=== PATIENT | male | born 1965 | race Caucasian/White ===

== ENCOUNTER 2017-05-30 09:34 | Emergency (ER) | payer MEDICAID, OTHER ==
[2017-05-30] MEDS ORDERED: Tdap Vaccine 0.5 ml Vial (10-64 yrs) IM ONE ×2 (10:24→11:14)
[2017-05-30] MEDS ORDERED: Bacitracin OINT 15GM TOP STA (10:25)
[2017-05-30] MEDS ORDERED: Sodium Chloride 0.9% 1,000 ML IV SCH (10:45)
--- NOTE | 2017-05-30 11:03 | ED PDOC ---
HPI: Psych/Substance Abuse Time Seen by Provider: 05/30/17 10:14 Chief Complaint (Nursing): Headache Chief Complaint (Provider): Headache History Per: Patient History/Exam Limitations: intoxication Current Symptoms Are (Timing): Still Present Modifying Factor(s): Alcohol Additional History Per: Family (daughter) Additional Complaint(s): 52 year old male was brought to the ED by EMS accompanied by daughter for evaluation of head and right elbow injury. Daughter states her family was celebrating her birthday last night into the morning and as her aunt was leaving , her father fell down 8 steps around 9am. Daughter states she is unsure of how much her father drank, but she notes she did witness him taking shots. Patient' s only complaint at present is headache. Denies loss of consciousness, nausea or vomiting. Of note: unknown if patient had recent tetanus vaccination PMD: No Family Provider Past Medical History Reviewed: Historical Data, Nursing Documentation, Vital Signs Vital Signs: Last Vital Signs Temp 97 F L 05/30/17 09:37 Pulse 67 05/30/17 09:37 Resp BP 139/82 05/30/17 09:37 Pulse Ox 97 05/30/17 09:37 - Medical History PMH: No Chronic Diseases - Surgical History Surgical History: No Surg Hx - Family History Family History: States: Unknown Family Hx - Living Arrangements Living Arrangements: With Family - Social History Alcohol: Social - Immunization History Hx Tetanus Toxoid Vaccination: No - Home Medications Home Medications: Ambulatory Orders Medication Instructions Recorded Hydrocortisone [Anusol-HC] 25 mg RC BID #14 sup 08/04/13 Ibuprofen [Motrin] 600 mg PO TIDPC #14 tab 08/04/13 Diphenhydramine Hydrochlorid 25 mg PO 5XD PRN #30 cap 10/27/14 [Benadryl] Famotidine [Pepcid] 20 mg PO BID #20 tab 10/27/14 Prednisone 10 mg PO DAILY #32 tab 10/27/14 Triamcinolone 0.25% [Triamcinolone 1 appl TP BID #60 g 10/27/14 Acetonide] Albuterol Sulfate [Ventolin Hfa] 0.09 mg IH Q4 PRN #1 inh 11/27/14 Dm Hydrobrom/Promethazine Hc 10 ml PO Q8 PRN #8 oz 10/20/15 [Promethazine Dm 15 mg/5 ml-6.25 mg/5 ml 118 M] Spacer, Inhalation [Aerochamber] 1 dev IH DAILY #1 dev 11/27/14 Acetaminophen [Acetaminophen 8 650 mg PO Q8 PRN #24 tablet.er 05/30/17 Hour] Bacitracin Ointment [Bacitracin] 5 gm TOP BID #1 tube 05/30/17 - Allergies Allergies/Adverse Reactions: Allergies Allergy/AdvReac Type Severity Reaction Status Date / Time No Known Allergies Allergy Verified 05/30/17 09:35 Review of Systems ROS Statement: Except As Marked, All Systems Reviewed And Found Negative Gastrointestinal: Negative for: Nausea, Vomiting Neurological: Positive for: Headache. Negative for: Other (loss of consciousness) Physical Exam - Reviewed Nursing Documentation Reviewed: Yes Vital Signs Reviewed: Yes - Physical Exam Comments: GENERAL APPEARANCE: Patient is awake, somnolent but responsive to painful and verbal stimuli (+) intoxicated SKIN: Warm, dry; (-) cyanosis; (-) rash. HEAD: (+) posterior parietal hematoma measuring 3cm by 3cm with central 2cm by 2cm stellate, irregular laceration with friable skin (+) active bleeding (+) tenderness, (-) palpable bone deformity (-) facial tenderness or swelling EYES: (-) conjunctival pallor, (-) scleral icterus, (+) opens eyes ENMT: (-) sinus tenderness; mucous membranes are moist. NECK: Supple, FROM (-) tenderness, (-) stiffness, (-) meningismus, (-) lymphadenopathy. CHEST AND RESPIRATORY: (-) rales, (-) rhonchi, (-) wheezes; breath sounds equal bilaterally. HEART AND CARDIOVASCULAR: (-) irregularity; (-) murmur, (-) gallop. ABDOMEN AND GI: Soft; (-) tenderness (-)distention. RIGHT-ELBOW: (+) Full ROM, (-) ecchymosis, tenderness, or effusion (+) .5cm linear, superficial abrasion to lateral aspect of Right elbow, (-) active bleeding. NEURO AND PSYCH: Mental status as above. cardiology specialist: Pupils are reactive; EOMI; (-) facial asymmetry; tongue and uvula midline. - Laboratory Results Result Diagrams: 05/30/17 11:00 05/30/17 11:00 - ECG O2 Sat by Pulse Oximetry: 97 (RA) Pulse Ox Interpretation: Normal Medical Decision Making Medical Decision Making: Time: 1024 Initial Impression: head injury, scalp laceration, elbow abrasion s/p fall, alcohol intoxication Initial Plan: --Head w/o contrast [CT] --Alcohol serum --CMP --CBC w/ differential --Adacel 0.5ml IM --Bacitracin and dressing to elbow wound after normal saline irrigation. --Normal Saline 1000 mls/hr --Reevaluation Finger stick: 109 PROCEDURE: LACERATION REPAIR Performed by Patricia Guillaume PA-C Location: scalp Length: laceration 2cm by 2cm Description: stellate, irregular Anesthesia: None Preparation: The wound was irrigated with 100cc saline. Exploration: The wound was explored and no foreign bodies were found. Procedure: The wound was closed with 13 chetan. There was appropriate approximation. Post-Procedure: Good closure and hemostasis. The patient tolerated the procedure well and there were no complications. cardiology specialist remains intact. Post procedure dressing applied. 1145 CT reviewed, radiology report follows Creator : Rudy Baum MD Report Date : 05/30/2017 11:42:44 PROCEDURE: CT HEAD WITHOUT CONTRAST. HISTORY: etoh, s/p fall down 8 stairs COMPARISON: None available. TECHNIQUE: Axial computed tomography images were obtained through the head/brain without intravenous contrast. Radiation dose: Total exam DLP = 835.7 mGy-cm. This CT exam was performed using one or more of the following dose reduction techniques: Automated exposure control, adjustment of the mA and/or kV according to patient size, and/or use of iterative reconstruction technique. FINDINGS: HEMORRHAGE: No intracranial hemorrhage. BRAIN: No mass effect or edema. Mild atrophy. No chronic microvascular ischemic changes. VENTRICLES: Rajiv cisterna magna versus posterior fossa cyst. No hydrocephalus. CALVARIUM: Unremarkable. PARANASAL SINUSES: Maxillary sinus and ethmoid air cell mucosal thickening. MASTOID AIR CELLS: Unremarkable as visualized. No inflammatory changes. OTHER FINDINGS: High right parietal scalp laceration/hematoma and skin chetan. IMPRESSION: High right parietal scalp laceration/hematoma and skin chetan. No calvarial fracture. No acute intracranial hemorrhage. Patient pending clinical sobriety. 1230 Patient sleeping comfortably in ED stretcher. VSS. 1330 Patient requesting food tray at this time. Patient ambulated to ED bathroom but needed assistance from daughter, gait remains unsteady. Will continue to monitor. 1530 Patient ambulatory in ED with a steady, unassisted gait. Patient is awake, alert , oriented x3 and reports improvement of headache. Patient states he will take a taxi home with his daughter. On re-evaluation, patient appears well, not toxic appearing, is awake, alert, neck is supple with no signs of meningismus, in no acute distress. Lungs clear to auscultation, cardiac RRR, abdomen soft, non-tender, repeat neuro exam shows no focal findings. VSS, stable for discharge. Diagnostic results d/w the patient in great detail. Diagnosis of head injury, scalp laceration, elbow abrasion, headache s/p fall d/w the patient. Based on history, exam and diagnostic results, plan will be for outpatient follow up. Patient instructed to follow-up with pmd / referral provided / the clinic in 1- 2 days without fail. Advised to take medication as prescribed. Return to the emergency room at any time for any new or worsening symptoms. Patient states he fully agrees with and understands discharge instructions. States that he agrees with the plan and disposition. Verbalized and repeated discharge instructions and plan. I have given the patient opportunity to ask any additional questions. Patient was advised to return to ED in 5 days for suture removal. Educated on wound care. Scribe Attestation: Documented by Narciso Curry, acting as a scribe for Patricia Guillaume PA-C Provider Scribe Attestation: All medical record entries made by the Scribe were at my direction and personally dictated by me. I have reviewed the chart and agree that the record accurately reflects my personal performance of the history, physical exam, medical decision making, and the department course for this patient. I have also personally directed, reviewed, and agree with the discharge instructions and disposition. Procedures - Time-Out Type of Procedure: Laceration Site of Procedure: scalp Correct Patient (with visual ID + MR# on ID Band): Yes Correct Procedure: Yes Correct Site Marked: Yes Medication Reconciliation / Bloodwork / Allergies Checked: Yes PA/Huber: Patricia Guillaume Disposition - Clinical Impression Clinical Impression: Headache, Scalp laceration, Fall down stairs, Elbow abrasion, Alcohol intoxication - Patient ED Disposition Is Patient to be Admitted: No Counseled Patient/Family Regarding: Studies Performed, Diagnosis, Need For Followup, Rx Given - Disposition Referrals: [facility] [Outside] Disposition: Routine/Home Disposition Time: 15:35 Condition: IMPROVED Additional Instructions: CHETAN NEED TO BE REMOVED IN 5 DAYS. CLEAN WOUNDS TWICE A DAY WITH WARM WATER AND SOAP. APPLY ANTIBIOTIC OINTMENT NEEDED. Prescriptions: Acetaminophen [Acetaminophen 8 Hour] 650 mg PO Q8 PRN #24 tablet.er PRN Reason: Pain, Moderate (4-7) Bacitracin Ointment [Bacitracin] 5 gm TOP BID #1 tube Instructions: Headache, Adult, Skin Abrasions, Wound Care, Laceration Repair With Chetan (DC), Skin Abrasions (DC) Forms: [employer] (Irish) Print Language: POLISH - POA Present On Arrival: Falls Or Trauma Results - Lab Results Lab Results: 05/30/17 05/30/17 05/30/17 13:19 11:00 11:00 WBC 7.0 RBC 4.91 Hgb 15.9 Hct 45.8 MCV 93.2 MCH 32.3 H MCHC 34.6 RDW 14.0 Plt Count 283 MPV 8.3 Neut % (Auto) 68.5 Lymph % (Auto) 25.7 [place] % (Auto) 3.4 Eos % (Auto) 1.8 Baso % (Auto) 0.6 Neut # (Auto) 4.8 Lymph # (Auto) 1.8 [place] # (Auto) 0.2 Eos # (Auto) 0.1 Baso # (Auto) 0.0 Sodium 150 H Potassium 4.3 Chloride 110 H Carbon Dioxide 16 L Anion Gap 28 H BUN 11 Creatinine 0.6 L Est GFR ( Amer) > 60 Est GFR (Non-Af Amer) > 60 POC Glucose (mg/dL) 101 Random Glucose 105 Calcium 8.9 Total Bilirubin 0.4 AST 35 ALT 42 Alkaline Phosphatase 102 Total Protein 8.5 H Albumin 4.6 Globulin 3.9 Albumin/Globulin Ratio 1.2 Alcohol, Quantitative 253 H 05/30/17 09:42 WBC RBC Hgb Hct MCV MCH MCHC RDW Plt Count MPV Neut % (Auto) Lymph % (Auto) [place] % (Auto) Eos % (Auto) Baso % (Auto) Neut # (Auto) Lymph # (Auto) [place] # (Auto) Eos # (Auto) Baso # (Auto) Sodium Potassium Chloride Carbon Dioxide Anion Gap BUN Creatinine Est GFR ( Amer) Est GFR (Non-Af Amer) POC Glucose (mg/dL) 109 Random Glucose Calcium Total Bilirubin AST ALT Alkaline Phosphatase Total Protein Albumin Globulin Albumin/Globulin Ratio Alcohol, Quantitative
[2017-05-30 11:07] LABS: BASO % 0.6 % (0.0-2.0); EOS # 0.1 K/uL (0.0-0.7); EOS % 1.8 % (0.0-4.0); HEMOGLOBIN 15.9 g/dL (12.0-18.0); LYMPH # 1.8 K/uL (1.0-4.3); LYMPH % 25.7 % (20.0-40.0); MEAN CELL VOLUME 93.2 fl (80.0-94.0); MEAN CORPUSCULAR HEMOGLOBIN 32.3 pg (27.0-31.0); MEAN CORPUSCULAR HGB CONC 34.6 g/dL (33.0-37.0); MEAN PLATELET VOLUME 8.3 fl (7.2-11.7); MONO # 0.2 K/uL (0.0-0.8); MONO % 3.4 % (0.0-10.0); NEUT # 4.8 K/uL (1.8-7.0); NEUT % 68.5 % (50.0-75.0); NRBC % 0.1 % (0.0-0.0); RBC 4.91 Mil/uL (4.40-5.90)
[2017-05-30 11:17] LABS: ALB/GLOB RATIO 1.2 (1.0-2.1); ALBUMIN 4.6 g/dL (3.5-5.0); ALT/SGPT 42 U/L (21-72); AST/SGOT 35 U/L (17-59); BLOOD UREA NITROGEN 11 mg/dl (9-20); CALCIUM 8.9 mg/dL (8.4-10.2); GFR AFRICAN-AMERICAN > 60; GFR NON-AFRICAN AMERICAN > 60
--- NOTE | 2017-05-30 11:44 | CT ---
PROCEDURE: CT HEAD WITHOUT CONTRAST. HISTORY: etoh, s/p fall down 8 stairs COMPARISON: None available. TECHNIQUE: Axial computed tomography images were obtained through the head/brain without intravenous contrast. Radiation dose: Total exam DLP = 835.7 mGy-cm. This CT exam was performed using one or more of the following dose reduction techniques: Automated exposure control, adjustment of the mA and/or kV according to patient size, and/or use of iterative reconstruction technique. FINDINGS: HEMORRHAGE: No intracranial hemorrhage. BRAIN: No mass effect or edema. Mild atrophy. No chronic microvascular ischemic changes. VENTRICLES: Rajiv cisterna magna versus posterior fossa cyst. No hydrocephalus. CALVARIUM: Unremarkable. PARANASAL SINUSES: Maxillary sinus and ethmoid air cell mucosal thickening. MASTOID AIR CELLS: Unremarkable as visualized. No inflammatory changes. OTHER FINDINGS: High right parietal scalp laceration/hematoma and skin zaid. IMPRESSION: High right parietal scalp laceration/hematoma and skin zaid. No calvarial fracture. No acute intracranial hemorrhage.
[2017-05-30 15:54] VITALS: BP 128/75; PULSE 82; RESP 16; TEMP 97.9
[2017-05-30 16:26] VITALS: O2SAT 97
== END 2017-05-30 15:54 | disposition home or self-care (01) ==
LOC: H.ER 09:34
DX: F10.129 Alcohol abuse with intoxication, unspecified (principal); S01.01XA Laceration without foreign body of scalp, initial encounter; S50.319A Abrasion of unspecified elbow, initial encounter; W10.9XXA Fall (on) (from) unspecified stairs and steps, initial encounter; Y92.89 Other specified places as the place of occurrence of the external cause
CPT/HCPCS: 12001; 70450; 80053; 80320; 82948; 85025; 90471; 90715; 99285; J7040

== ENCOUNTER 2017-06-06 11:38 | Emergency (ER) | payer MEDICAID ==
[2017-06-06 11:47] VITALS: BMI 31.1
[2017-06-06 11:48] VITALS: BP 121/75; PULSE 66; RESP 16; TEMP 98; O2SAT 98
--- NOTE | 2017-06-06 12:59 | ED PDOC ---
HPI: Wound Care - HPI Time Seen by Provider: 06/06/17 12:29 Chief Complaint (Nursing): Suture/Staple Removal Chief Complaint (Provider): Suture/Staple Removal History Per: Patient Exam Limitations: no limitations Onset/Duration Of Symptoms: Days Current Symptoms Are (Timing): Still Present Additional Complaint(s): Singh Oreilly is a 52 year old male with no past medical history, who is presenting to the ER for a wound check and staple removal. Patient states that the zaid were placed 7 days ago. He denies any fever, chills, or discharge, and states that he has been regularly cleaning the wound with soap and water. Patient offers no other medical complaints at this time. PMD: none provided Past Medical History Reviewed: Historical Data, Nursing Documentation, Vital Signs Vital Signs: Last Vital Signs Temp 98 F 06/06/17 11:47 Pulse 66 06/06/17 11:47 Resp 16 06/06/17 11:47 BP 121/75 06/06/17 11:47 Pulse Ox 98 06/06/17 11:47 - Medical History PMH: No Chronic Diseases - Family History Family History: States: Unknown Family Hx - Social History Current smoker - smoking cessation education provided: No Alcohol: None Drugs: Denies - Immunization History Hx Tetanus Toxoid Vaccination: No Hx Influenza Vaccination: No Hx Pneumococcal Vaccination: No - Home Medications Home Medications: Ambulatory Orders Medication Instructions Recorded Hydrocortisone [Anusol-HC] 25 mg RC BID #14 sup 08/04/13 Ibuprofen [Motrin] 600 mg PO TIDPC #14 tab 08/04/13 Diphenhydramine Hydrochlorid 25 mg PO 5XD PRN #30 cap 10/27/14 [Benadryl] Famotidine [Pepcid] 20 mg PO BID #20 tab 10/27/14 Prednisone 10 mg PO DAILY #32 tab 10/27/14 Triamcinolone 0.25% [Triamcinolone 1 appl TP BID #60 g 10/27/14 Acetonide] Albuterol Sulfate [Ventolin Hfa] 0.09 mg IH Q4 PRN #1 inh 11/27/14 Dm Hydrobrom/Promethazine Hc 10 ml PO Q8 PRN #8 oz 11/27/14 [Promethazine Dm 15 mg/5 ml-6.25 mg/5 ml 118 M] Spacer, Inhalation [Aerochamber] 1 dev IH DAILY #1 dev 11/27/14 Acetaminophen [Acetaminophen 8 650 mg PO Q8 PRN #24 tablet.er 05/30/17 Hour] Bacitracin Ointment [Bacitracin] 5 gm TOP BID #1 tube 05/30/17 Cephalexin [Keflex] 500 mg PO Q6 #28 capsule 06/06/17 - Allergies Allergies/Adverse Reactions: Allergies Allergy/AdvReac Type Severity Reaction Status Date / Time No Known Allergies Allergy Verified 05/30/17 09:35 Review of Systems ROS Statement: Except As Marked, All Systems Reviewed And Found Negative Constitutional: Negative for: Fever, Chills Skin: Negative for: Other (wound discharge) Physical Exam - Reviewed Nursing Documentation Reviewed: Yes Vital Signs Reviewed: Yes - Physical Exam Comments: GENERAL APPEARANCE: Patient is awake, alert, oriented x 3, in no acute distress. SKIN: Warm, dry; (-) cyanosis; (-) rash. HEAD: (+) jagged laceration to R parietal scalp with zaid noted and scab formation, (+) wound dehiscence. EYES: (-) conjunctival pallor, (-) scleral icterus, (+) PEERL, (+) EOMI. ENMT: (-) sinus tenderness; mucous membranes are moist. Neck supple with FROM. EXTREMITIES: (-) deformity. - ECG O2 Sat by Pulse Oximetry: 98 (RA) Pulse Ox Interpretation: Normal Medical Decision Making Medical Decision Making: Time: 12:45 [place] removed by Provider. Wound was irrigated and cleaned with normal saline. Wound dehiscence was noted by Provider, and patient was made aware. Provider noted improper wound healing. Patient was advised regarding proper wound care and regular cleaning. Upon provider reevaluation patient is medically stable, and requires no further treatment in the ED at this time. Patient will be discharged with Rx for Keflex to prevent infection. Counseling was provided and all questions were answered regarding diagnosis and need for follow up with PMD/the clinic for wound check after 2-3 days w/o fail. There is agreement to discharge plan. Return if symptoms persist or worsen. Scribe Attestation: Documented by Rayna Matthews, acting as a scribe for Kiana Choi PA-C. Provider Scribe Attestation: All medical record entries made by the Scribe were at my direction and personally dictated by me. I have reviewed the chart and agree that the record accurately reflects my personal performance of the history, physical exam, medical decision making, and the department course for this patient. I have also personally directed, reviewed, and agree with the discharge instructions and disposition. Disposition - Clinical Impression Clinical Impression: Removal of suture - Patient ED Disposition Is Patient to be Admitted: No Counseled Patient/Family Regarding: Diagnosis, Need For Followup, Rx Given - Disposition Disposition: Routine/Home Disposition Time: 12:30 Condition: STABLE Additional Instructions: Thank you for letting us take care of you today. You were treated for wound check, staple removal. The emergency medical care you received today was directed at your acute symptoms. Continue to [id number] with regular soap and water. Take medication as prescribed to prevent infection. Return to the Emergency Department if your symptoms worsen, do not improve, or if you have any other problems. Please see your doctor after the days for wound check and re-evaluation. Bring any paperwork you were given at discharge with you along with any medications you are taking to your follow up visit. Our treatment cannot replace ongoing medical care by a primary care provider (PCP) outside of the emergency department. Thank you for allowing the [facility] team to be part of your care today. Prescriptions: Cephalexin [Keflex] 500 mg PO Q6 #28 capsule Instructions: Staple Removal Forms: Mophie (Tamazight) Print Language: MAORI - PA / MATH TEACHER / Resident Statement / has reviewed & agrees with the documentation as recorded.
== END 2017-06-06 13:13 | disposition home or self-care (01) ==
LOC: H.ER 11:38
DX: Z48.02 Encounter for removal of sutures (principal)